=== PATIENT | female | born 1955 | race Caucasian/White ===

== ENCOUNTER 2019-03-03 08:18 | Outpatient (CLI) | payer BC, OTHER ==
--- NOTE | 2019-03-03 09:03 | XRAY Report ---
Reason: ANKLE JOINT STIFFNESS, LEFT Procedure Date: 03/03/2019 Accession Number: [id number] / [id number] Procedure: XR - Ankle 3 View LT CPT Code: Final Report FULL RESULT: EXAM: LEFT ANKLE RADIOGRAPHY EXAM DATE: 03/03/2019 08:36 AM. CLINICAL HISTORY: Left ankle joint stiffness. COMPARISON: None. TECHNIQUE: 3 views. FINDINGS: Bones: An acute fracture involving the far distal fibula is present and appears comminuted. A posterior lateral fragment is displaced by up to 3 mm as seen on the oblique and lateral view. A minimally displaced transverse Durán type A component is also likely present. No tibial or talar fracture evident. Small posterior calcaneal bone spurs present. Joints: A moderate joint effusion present. The ankle mortise is symmetric. There is some medial tibiotalar joint space loss and small periarticular osteophytes. Mild midfoot osteoarthritis present. Soft Tissues: Lateral soft tissue swelling noted. IMPRESSION: 1. Comminuted Durán type A distal fibular fracture with fragments displaced by about 3 mm. 2. Tibiotalar joint space loss and osteoarthritis. 3. Moderate tibiotalar joint effusion. RADIA
== END 2019-03-03 08:19 | disposition home or self-care (01) ==
LOC: DI 08:18
PROVIDERS: ATTEND Family Medicine
DX: S82.832A Other fracture of upper and lower end of left fibula, initial encounter for closed fracture (principal); M19.072 Primary osteoarthritis, left ankle and foot; M25.472 Effusion, left ankle

== ENCOUNTER 2019-03-03 08:49 | Emergency (ER) | payer BC, OTHER ==
[2019-03-03 09:00] VITALS: BP 116/75
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
== END 2019-03-03 10:27 | disposition home or self-care (01) ==
LOC: ED 08:49
DX: S82.62XA Displaced fracture of lateral malleolus of left fibula, initial encounter for closed fracture (principal); W01.0XXA Fall on same level from slipping, tripping and stumbling without subsequent striking against object, initial encounter; Y92.89 Other specified places as the place of occurrence of the external cause; M19.072 Primary osteoarthritis, left ankle and foot; M25.472 Effusion, left ankle
CPT/HCPCS: 99282; 99284

== ENCOUNTER 2020-01-03 08:00 | Outpatient (CLI) | payer BC, OTHER | END 2020-01-03 23:59 | disposition home or self-care (01) | LOC: LAB.R 08:00 | PROVIDERS: ATTEND Family Medicine | DX: R30.0 Dysuria (principal) | CPT/HCPCS: 87077; 87086; 87181 ==

== ENCOUNTER 2020-01-05 10:21 | Day surgery (SDC) | payer BC, OTHER ==
[2020-01-05] MEDS ORDERED: fentaNYL 250 MCG/5 ML VIAL IVP ONE (10:22)
[2020-01-05] MEDS ORDERED: MIDAZOLAM 2 MG/2 ML VIAL IVP ONE (10:22)
[2020-01-05] MEDS ORDERED: LACTATED RINGERS 1,000 ML IV ONE (10:43)
[2020-01-05] MEDS ORDERED: LACTATED RINGERS 100 ML IV ONE (12:43)
[2020-01-05 14:03] VITALS: BP 96/54
== END 2020-01-05 10:22 | disposition home or self-care (01) ==
LOC: SDS 10:21
PROVIDERS: ATTEND Surgery
PROC: 0DBN8ZZ Excision of Sigmoid Colon, Via Natural or Artificial Opening Endoscopic (ICD-10-PCS; 2020-01-05)
PROC: 0DBH8ZZ Excision of Cecum, Via Natural or Artificial Opening Endoscopic (ICD-10-PCS; principal; 2020-01-05 11:45)
DX: Z12.11 Encounter for screening for malignant neoplasm of colon (principal); D12.0 Benign neoplasm of cecum; D12.5 Benign neoplasm of sigmoid colon; K57.30 Diverticulosis of large intestine without perforation or abscess without bleeding
CPT/HCPCS: 45380; J3010; J7120

== ENCOUNTER 2020-01-12 15:04 | Outpatient (CLI) | payer BC, OTHER ==
[2020-01-12 16:01] VITALS: BP 119/74
--- NOTE | 2020-01-12 16:01 | SLEEP CARE CONSULTATION ---
Information from patient questionnaire entered by Foster Vazquez. I have reviewed and concur with the information entered by Foster Vazquez. This document represents the service I personally performed and the decisions made by me, Gia Mata ARNP. History of Present Illness Service Date and Time: 01/12/2020 1504 Reason for Visit: New patient Chief Complaint: reports: Unrefreshed sleep (sometimes), Snoring, Frequent awakenings at night, Other (referred by ENT). denies: Insomnia, Observed pauses in breathing Date of Onset: years, 7-8 Usual bedtime: 10:30 Time it takes to fall asleep: 10-15 minutes Snores at night: Yes Observed to quit breathing while asleep: No Sleeps alone due to snoring: No Number of times waking at night: 1-6 Reasons for waking at night: reports: Snoring, Bathroom. denies: Choking, Gasping for air Toss, Turn, or Twitch while sleeping: Yes Recalls having dreams: Yes Usually gets out of bed at: 8 AM Feels refreshed in the morning: Yes Morning headache: No Sleepy or fatigued during the day: No Ever fallen asleep while driving: No Takes day naps: No Dreams during day naps: No Prior sleep studies: No Additional HPI information: I had the pleasure of seeing LISA SNYDER today regarding the possibility of her having a sleep disorder. Her current complaints are snoring and frequent awakenings at night. She has been seeing an ENT about her snoring who sent her here to rule out sleep apnea. She has some unrefreshed sleep but sometimes does feel rested if she has fewer night awakening. - Parasomnia Symptoms Ever been unable to move upon waking from sleep: No Walks in sleep: No Talks in sleep: No Ever acted out dreams in sleep: No Ever felt weak in the knees when startled or emotional: No Bothered by creepy, crawly, restless sensations in legs: No Problems with memory or concentration: No Subjective Initial [place] Sleepiness Scale score: 1 (in 2019) Past Medical History Past Medical History: reports: GERD, Other (indigestion). 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 Patient is and lives in [place]. Have you smoked in the past 12 months: No Alcohol use: Yes Alcohol amount and frequency: socially Caffeine use: Yes Caffeine amount and frequency: 3-4 cups of tea Family History Family history of sleep disordered breathing: No Allergies and Home Medications Drug allergies reviewed: Yes (Sulfa) Home medication list reviewed: Yes Allergy and home medication list: Flonase omeprazole ibuprofen PRN daily vitamin Review of Systems Weight loss over past 5 years: 40 Cardiovascular: denies: high blood pressure, irregular heart rate or pulse Respiratory: denies: shortness of breath Gastrointestinal: reports: heartburn (indigestion). denies: difficulty swallowing Neurological: denies: headaches, seizure, head trauma Psychiatric: denies: Attention Deficit Hyperactivity, anxiety, depression, claustrophobia Ear/Nose/Throat: reports: nasal congestion, sinus problems, wisdom teeth removed. denies: nose bleeds, dry mouth/throat, injury to nose, tonsillectomy Endocrine: denies: thyroid disease Immunologic: reports: sneezing, allergies to food or environment (environment) Physical Exam Blood Pressure: 119/74 Cuff size: wrist Heart Rate: 71 O2 Saturation: 100 Height: 5 ft 1 in Weight: 154 lb Body Mass Index: 29.0 BMI Classification: Overweight Neck circumference: 13.5 (inches) Nostrils: patent to airflow Turbinates: swollen Septum: midline Mouth and throat: narrow oropharynx Uvula visualization: 25% Mallampati Class III Tongue: enlarged in size with teeth cadena on lateral edges Tonsils: 1+ Chin and jaw: normal size and position Neck: normal w/o lymphadenopathy or thyromegaly Heart: regular rate and rhythm Lungs: clear bilaterally Impression and Plan 1. Suspected Obstructive Sleep Apnea-Hypopnea Syndrome, as suggested by a history of loud and irregular snoring, frequent awakening during the night, unrefreshed sleep. I reviewed with patient that a narrow oropharynx and obesity are common predisposing factors for obstructive sleep apnea-hypopnea syndrome. I recommend proceeding to polysomnography to confirm the diagnosis and to assess severity. If the patient has significant sleep disordered breathing, a manual CPAP titration study will also be performed to find the optimal treatment pressure. I informed the patient of what the sleep studies involve and after some discussion, obtained agreement to proceed. The pathophysiology of obstructive sleep apnea-hypopnea syndrome was discussed with the patient and health risks of cardiovascular and cerebrovascular disease if not treated. AAS brochure for obstructive sleep apnea-hypopnea syndrome given and reviewed. Risks of drowsy driving discussed in detail and patient advised to avoid long distance driving and to door puller at the first sign of drowsiness. Patient agreed to plan. * Schedule polysomnography +- manual CPAP titration study. * Avoid long distance driving or driving when feeling sleepy. * Avoid alcohol, sedative and muscle relaxant around bedtime. * Attempt to lose weight. * Review instructions provided by trained office staff on how to prepare for the sleep study. * Return for follow-up after sleep study completed. Visit Type: In Office Time Spent with Patient (minutes): 30 Provider Statement: I spent 100% of the Face to Face Visit with the patient with greater than 50% spent counseling the patient and coordination of care.
== END 2020-01-12 15:05 | disposition home or self-care (01) ==
LOC: SC 15:04
PROVIDERS: ATTEND Nurse Practitioner Family
DX: R06.83 Snoring (principal); G47.8 Other sleep disorders; E66.3 Overweight; Z68.29 Body mass index [BMI] 29.0-29.9, adult
CPT/HCPCS: 99203; 99212

== ENCOUNTER 2020-02-01 08:00 | Outpatient (CLI) | payer BC, OTHER | END 2020-02-01 23:59 | disposition home or self-care (01) | LOC: LAB.R 08:00 | PROVIDERS: ATTEND Family Medicine | DX: N39.0 Urinary tract infection, site not specified (principal) | CPT/HCPCS: 87077; 87086; 87181 ==

== ENCOUNTER 2020-02-22 07:58 | Outpatient (CLI) | payer BC, OTHER | END 2020-02-22 07:59 | disposition home or self-care (01) | LOC: SC 07:58 | PROVIDERS: ATTEND Nurse Practitioner Family | DX: G47.8 Other sleep disorders (principal); R09.02 Hypoxemia | CPT/HCPCS: 95806 ==

== ENCOUNTER 2020-03-09 08:03 | Outpatient (CLI) | payer BC, OTHER ==
--- NOTE | 2020-03-09 08:28 | SLEEP CARE CONSULTATION ---
Information from patient questionnaire entered by Angelica Curtis. I have reviewed and concur with the information entered by Angelica Curtis. This document represents the service I personally performed and the decisions made by , Gia Mata ARNP. History of Present Illness Service Date and Time: 03/09/2020 0803 Initial [place] Sleepiness Scale score: 1 (in 2019) Current [place] Sleepiness Scale score: 1 Additional HPI information: LISA SNYDER returns for follow up and results of the recently performed home sleep study. The patient was informed of the following findings: patient has no significant sleep disordered breathing with an average AHI of 3.7 and paco oxygen saturation of 85%. She did not sleep supine during the study and had mild hypoxemia with 10.9 minutes spent with oxygen saturation under 90%. I explained the pathophysiology behind obstructive sleep apnea. Patient does not have sleep apnea and was advised how weight gain could increase the risk of developing sleep apnea in the future. I strongly encouraged the patient to lose weight. Patient has moderate to loud snoring. Snoring can be reduced by weight loss. Weight loss is best achieved with diet consult. Patient instructed to contact PCP for referral. Snoring can also be treated with an oral appliance from a dentist. Advised to check insurance coverage. In addition, an ENT evaluation can be do to see if other treatment is indicated. Patient counseled not drink alcohol less than 4 hours before bedtime as it can increase snoring and apnea. Patient was cautioned about risks of drowsy driving until sleepiness symptoms resolve. Patient denies drowsy driving. Sleep Study - Results Type of Sleep Study: Home sleep study Prior sleep studies: No Polysomnography/Home Sleep Study results: Physician Impression: The quality of the study is good. The length of the study is adequate (> 240 minutes). Please also see the tabulated and graphic data. 1. No significant sleep disordered breathing, with an AHI of 3.7/hr and paco SaO2 of 85%. During the study, the patient had 4 apneas (4 obstructive, 0 central, 0 mixed) and 25 hypopneas. The longest episode lasted 75.0 seconds. The patient did not sleep supine during this study (supine AHI was 0.0 and non-supine, 3.75). 2. Hypoxemia (ICD-10 R09.02), mild, with the lowest oxygen saturation of 85 % and 10.9 minutes with SaO2 under 90%. Baseline oxygen saturation was normal (Average oxygen saturation was 92%). Allergies and Home Medications Drug allergies reviewed: Yes (sulfa) Home medication list reviewed: Yes (no changes) Review of Systems Review of systems same as previous: Yes (no changes) Physical Exam Heart Rate: 71 O2 Saturation: 98 Height: 5 ft 1 in Weight: 154 lb (with coat) Body Mass Index: 29.0 BMI Classification: Overweight Impression and Plan 1. Snoring but no significant sleep disordered breathing. Patient advised that often weight loss will reduce snoring as well as apnea risk. An oral appliance can also be used for snoring. This would require a dental consultation. Patient cautioned not to use other online appliances as can cause bite issues. A list of accredited dentists in [facility] and one local dentist who makes oral appliances was offered but declined. Patient is advised to check if insurance will cover. An ENT consult can also be helpful to determine if any other treatment is an option. Patient is current working on weight loss. She has lost weight. Currently patients BMI is 29.0. Thus patient is advised to continue to lose weight. The patient would like to reduce to pounds bringing their BMI down to about 140. 2. Hypoxemia, mild. His paco oxygen saturation was 85% during the sleep study with 10.9 minutes spent under 90%. His baseline oxygen saturation was 92%. * Continue to try to lose weight * Avoid alcohol consumption near bedtime * The patient is cautioned about driving until sleepiness is completely resolved. * Return as needed. Counseling Topics: Weight loss health impact Visit Type: In Office Time Spent with Patient (minutes): 16 Provider Statement: I spent 100% of the Face to Face Visit with the patient with greater than 50% spent counseling the patient and coordination of care.
== END 2020-03-09 08:04 | disposition home or self-care (01) ==
LOC: SC 08:03
PROVIDERS: ATTEND Nurse Practitioner Family
DX: R06.83 Snoring (principal); R09.02 Hypoxemia; E66.3 Overweight; Z68.29 Body mass index [BMI] 29.0-29.9, adult
CPT/HCPCS: 99212

== ENCOUNTER 2020-04-06 08:00 | Outpatient (CLI) | payer BC, OTHER ==
[2020-04-06 12:05] LABS: BASOPHILS # (AUTO) 0.1 10^3/uL (0.0-0.1); BASOPHILS % (AUTO) 1.3 %; EOSINOPHILS # (AUTO) 0.2 10^3/uL (0.0-0.7); EOSINOPHILS % (AUTO) 3.4 %; HGB - HEMOGLOBIN 17.3 g/dL (12.0-16.0); LYMPHOCYTES # (AUTO) 1.5 10^3/uL (1.5-3.5); LYMPHOCYTES % (AUTO) 28.7 %; MEAN CORPUSCULAR HEMOGLOBIN 31.9 pg (27.0-31.0); MEAN CORPUSCULAR HGB CONC 33.2 g/dL (32.0-36.0); MEAN CORPUSCULAR VOLUME 95.9 fL (81.0-99.0); MEAN PLATELET VOLUME 10.5 fL (7.9-10.8); MONOCYTES # (AUTO) 0.5 10^3/uL (0.0-1.0); MONOCYTES % (AUTO) 8.8 %; NEUTROPHILS % (AUTO) 57.4 %; PLT - PLATELET COUNT 307 10^3/uL (130-450); RED BLOOD COUNT 5.43 10^6/uL (4.20-5.40); RED CELL DISTRIBUTION WIDTH 12.4 % (12.0-15.0); WHITE BLOOD COUNT 5.2 x10^3/uL (4.8-10.8)
[2020-04-06 12:38] LABS: ALBUMIN 4.3 g/dL (3.2-5.5); ALBUMIN/GLOBULIN RATIO 1.3 (1.0-2.2); ALKALINE PHOSPHATASE 64 IU/L (42-121); ALT ALANINE AMINOTRANSFERASE 24 IU/L (10-60); AST ASPARTATE AMINOTRANSFERASE 27 IU/L (10-42); BUN - BLOOD UREA NITROGEN 11 mg/dL (6-20); CALCIUM 9.5 mg/dL (8.5-10.3); CARBON DIOXIDE - CO2 26 mmol/L (21-32); CHLORIDE 99 mmol/L (101-111); CHOL/HDL RATIO 2.7 (<4.4); CHOLESTEROL 215 mg/dL; CREATININE 0.7 mg/dL (0.4-1.0); GLUCOSE 81 mg/dL (70-100); HDL CHOLESTEROL 79 mg/dL; LDL CHOLESTEROL,CALCULATED 102 mg/dL; LDL/HDL RATIO 1.3 (<4.4); TOTAL PROTEIN 7.6 g/dL (6.7-8.2); VLDL CHOLESTEROL 34 mg/dL
== END 2020-04-06 23:59 | disposition home or self-care (01) ==
LOC: LAB.WCP 08:00
PROVIDERS: ATTEND Family Medicine
DX: Z00.00 Encounter for general adult medical examination without abnormal findings (principal)
CPT/HCPCS: 36415; 80053; 80061; 83721; 84443; 85025

== ENCOUNTER 2020-09-27 16:55 | Outpatient (CLI) | payer BC, OTHER ==
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
== END 2020-09-27 16:56 | disposition home or self-care (01) ==
LOC: DI.N 16:55
PROVIDERS: ATTEND Nurse Practitioner
DX: S20.222A Contusion of left back wall of thorax, initial encounter (principal)